=== PATIENT | female | born 1955 | race Caucasian/White ===

== ENCOUNTER → 2017-01-05 | Outpatient (CLI) | payer OTHER ==
--- NOTE | 2017-01-08 08:18 | MM ---
Reason for exam: screening (asymptomatic). Last mammogram was performed 1 year and 3 months ago. History: Patient is postmenopausal. Cancelled Right Mammotome of the right breast, October 09, 2007. Took hormonal contraceptives for 3 years. Physical Findings: A clinical breast exam by your physician is recommended on an annual basis and results should be correlated with mammographic findings. MG 3D Screening Mammo W/Cad Bilateral CC and MLO view(s) were taken. Prior study comparison: October 08, 2015, bilateral MG 3d screening mammo w/cad. August 13, 2014, right breast MG work up mamm w CAD RT. There are scattered fibroglandular densities. Focal asymmetry upper outer right breast is stable dating back to 2011. No significant changes when compared with prior studies. ASSESSMENT: Benign, BI-RAD 2 RECOMMENDATION: Routine screening mammogram of both breasts in 1 year.
== END | disposition home or self-care (01) ==
LOC: RADMAMWWP 07:32
PROVIDERS: ATTEND Family Medicine
DX: Z12.31 Encounter for screening mammogram for malignant neoplasm of breast (principal)
CPT/HCPCS: 77063; G0202

== ENCOUNTER → 2017-05-02 | Outpatient (CLI) | payer OTHER ==
--- NOTE | 2017-05-03 07:18 | USB ---
Reason for exam: clinical finding. History: Patient is postmenopausal. Cancelled Right Mammotome of the right breast, October 09, 2007. Took hormonal contraceptives for 3 years. Physical Findings: Nurse did not find any significant physical abnormalities on exam. US Breast BILAT Right breast ultrasound includes all four quadrants, the retroareolar region and axilla. Finding demonstrates no cystic or solid lesion seen. Left breast ultrasound includes all four quadrants, the retroareolar region and axilla. Finding demonstrates no cystic or solid lesion seen. No suspicious findings. These results were verbally communicated with the patient and result sheet given to the patient on 05/02/17. ASSESSMENT: Negative, BI-RAD 1 RECOMMENDATION: Return to routine screening mammogram schedule for both breasts. Back on schedule. Manage patient on a clinical basis.
== END | disposition home or self-care (01) ==
LOC: RADUSWWP 14:05
PROVIDERS: ATTEND Obstetrics & Gynecology
DX: N64.4 Mastodynia (principal)

== ENCOUNTER → 2018-05-07 | Outpatient (CLI) | payer BC ==
--- NOTE | 2018-05-07 15:07 | BD ---
EXAMINATION TYPE: Axial Bone Density DATE OF EXAM: 05/07/2018 COMPARISON: NONE CLINICAL HISTORY: Postmenopausal female. Osteoporosis screening. Height: 5 FT 1 1/4 IN Weight: 165 FRAX RISK QUESTIONS: History of Fracture in Adulthood: YES Secondary Osteoporosis: RISK FACTORS HISTORY OF: History of Wrist Fracture: LT WRIST X 2 When: 2018 Active: YES Postmenopausal woman: PART HYST 43 MEDICATIONS: Thyroid Medications: YES Which medication: LEVOTHYROXINE How Long: APPROX 20 YEARS Additional Medications: LEVOTHYROXINE, HCTZ , ATORVASTATIN, OXYBUTIN Additional History: EXAM MEASUREMENTS: Bone mineral densitometry was performed using the [employer] System. Bone mineral density as measured about the Lumbar spine is: ----- L1-L4(G/cm2): 1.209 T Score Values are as follows: ----- L2: 0.0 ----- L3: 0.8 ----- L4: 0.5 ----- L1-L4: 0.2 Bone mineral density has: DECREASED -8.4 % since study of: 2015 Bone mineral density about the R hip (g/cm2): 1.035 Bone mineral density about the L hip (g/cm2): 1.031 T Score values are as follows: -----R Neck: 0.0 -----L Neck: -0.1 -----R Total: 0.4 -----L Total: 0.4 Bone mineral density has: DECREASED -3.1 % since study of: 2015 IMPRESSION: Normal (Values between +1 and -1 indicate normal bone mass). Consider repeating this study in 5 year s or sooner if there is some new clinical indication. NOTE: T-SCORE=SD OF THE YOUNG ADULT MEAN.
== END | disposition home or self-care (01) ==
LOC: RADBDWWP 11:59
PROVIDERS: ATTEND Obstetrics & Gynecology
DX: Z13.820 Encounter for screening for osteoporosis (principal); Z78.0 Asymptomatic menopausal state
CPT/HCPCS: 77080

== ENCOUNTER → 2018-05-07 | Outpatient (CLI) | payer BC ==
--- NOTE | 2018-05-08 12:40 | MM ---
Reason for exam: screening (asymptomatic). Last mammogram was performed 1 year and 4 months ago. History: Patient is postmenopausal. Cancelled Right Mammotome of the right breast, October 09, 2007. Took hormonal contraceptives for 3 years. Physical Findings: A clinical breast exam by your physician is recommended on an annual basis and results should be correlated with mammographic findings. MG 3D Screening Mammo W/Cad Bilateral CC and MLO view(s) were taken. Prior study comparison: January 05, 2017, bilateral MG 3d screening mammo w/cad. October 08, 2015, bilateral MG 3d screening mammo w/cad. No significant changes when compared with prior studies. ASSESSMENT: Negative, BI-RAD 1 RECOMMENDATION: Routine screening mammogram of both breasts in 1 year.
== END | disposition home or self-care (01) ==
LOC: RADMAMWWP 11:56
PROVIDERS: ATTEND Family Medicine
DX: Z12.31 Encounter for screening mammogram for malignant neoplasm of breast (principal)
CPT/HCPCS: 77063; 77067

== ENCOUNTER → 2019-06-24 | Outpatient (CLI) | payer BC ==
--- NOTE | 2019-06-26 09:59 | MM ---
Reason for exam: screening (asymptomatic). Last mammogram was performed 1 year and 2 months ago. History: Patient is postmenopausal. Cancelled Right Mammotome of the right breast, October 09, 2007. Took hormonal contraceptives for 3 years. Physical Findings: A clinical breast exam by your physician is recommended on an annual basis and results should be correlated with mammographic findings. MG 3D Screening Mammo W/Cad Bilateral CC and MLO view(s) were taken. Prior study comparison: May 07, 2018, bilateral MG 3d screening mammo w/cad. January 05, 2017, bilateral MG 3d screening mammo w/cad. There are scattered fibroglandular densities. There is no discrete abnormality. No significant changes when compared with prior studies. ASSESSMENT: Negative, BI-RAD 1 RECOMMENDATION: Routine screening mammogram of both breasts in 1 year.
== END | disposition home or self-care (01) ==
LOC: RADMAMWWP 07:53
PROVIDERS: ATTEND Family Medicine
DX: Z12.31 Encounter for screening mammogram for malignant neoplasm of breast (principal)
CPT/HCPCS: 77063; 77067

== ENCOUNTER → 2020-07-14 | Outpatient (CLI) | payer BC ==
--- NOTE | 2020-07-19 11:13 | MM ---
Reason for exam: screening (asymptomatic). Last mammogram was performed 1 year and 1 month ago. History: Patient is postmenopausal. Cancelled Right Mammotome of the right breast, October 09, 2007. Took hormonal contraceptives for 3 years. Physical Findings: A clinical breast exam by your physician is recommended on an annual basis and results should be correlated with mammographic findings. MG 3D Screening Mammo W/Cad Bilateral CC and MLO view(s) were taken. Prior study comparison: June 24, 2019, bilateral MG 3d screening mammo w/cad. May 07, 2018, bilateral MG 3d screening mammo w/cad. There are scattered fibroglandular densities. Stable focal asymmetry right upper outer quadrant. No significant changes when compared with prior studies. ASSESSMENT: Negative, BI-RAD 1 RECOMMENDATION: Routine screening mammogram of both breasts in 1 year.
== END | disposition home or self-care (01) ==
LOC: RADMAMWWP 07:09
PROVIDERS: ATTEND Family Medicine
DX: Z12.31 Encounter for screening mammogram for malignant neoplasm of breast (principal)
CPT/HCPCS: 77063; 77067

== ENCOUNTER → 2020-07-14 | Outpatient (CLI) | payer BC ==
--- NOTE | 2020-07-14 09:12 | BD ---
EXAMINATION TYPE: Axial Bone Density DATE OF EXAM: 07/14/2020 COMPARISON: 05.07.2018 CLINICAL HISTORY: 65 YR OLD FEMALE.....ICD-10 CODE: Z78.0 POST MENOPAUSAL Height: 61.2 Weight: 163 FRAX RISK QUESTIONS: History of Fracture in Adulthood: YES Secondary Osteoporosis: YES 3. Menopause before 45: HYST AT AGE 43 RISK FACTORS HISTORY OF: History of Wrist Fracture: LT WRIST X2 IN 2018 Postmenopausal woman: YES AT AGE 43 Take estrogen and/or progesterone medications: VAG. CREAM, ESTROGEN, FOR ABOUT 20 YRS Lost more than 2 inches in height since high school: YES Hyperparathyroidism: NO Adrenal Insufficiency: NO MEDICATIONS: Thyroid Medications: YES, SYNTHROID FOR ABOUT 22 YRS Additional Medications: HCTZ, STATIN FOR CHOLESTEROL, OXYBUTYNIN, VIT D WEEKLY, SINGULAIR AND FLONASE Additional History: CHOLESTEROL, HYPERTENSION, INCONTINENCE, SINUSITIS EXAM MEASUREMENTS: Bone mineral densitometry was performed using the [employer] System. Bone mineral density as measured about the Lumbar spine is: ----- L1-L4(G/cm2): 1.360 T Score Values are as follows: ----- L1: 0.0 ----- L2: 1.2 ----- L3: 2.0 ----- L4: 2.1 ----- L1-L4: 1.5 Bone mineral density has: Increased 13.7% since study of: 05.07.2018 Bone mineral density about the R hip (g/cm2): 1.016 Bone mineral density about the L hip (g/cm2): 1.012 T Score values are as follows: -----R Neck: 0.0 -----L Neck: -0.1 -----R Total: 0.1 -----L Total: 0.0 Bone mineral density has: Decreased -4.1% since study of: 05.07.2018 FRAX%s: THERE IS A 6.1% CHANCE FOR A MAJOR OSTEOPOROTIC FX AMD A 0.2% FOR HIP.....PROBABILITY FOR F X IN 10 YRS TIME IMPRESSION: Normal (Values between +1 and -1 indicate normal bone mass). Consider repeating this study in 5 year s or sooner if there is some new clinical indication. NOTE: T-SCORE=SD OF THE YOUNG ADULT MEAN.
== END | disposition home or self-care (01) ==
LOC: RADBDWWP 07:13
PROVIDERS: ATTEND Family Medicine
DX: Z78.0 Asymptomatic menopausal state (principal)
CPT/HCPCS: 77080

== ENCOUNTER → 2021-08-12 | Outpatient (CLI) | payer MEDICARE ==
--- NOTE | 2021-08-12 13:25 | MM ---
Reason for exam: screening (asymptomatic). Last mammogram was performed 1 year and 1 month ago. History: Patient is postmenopausal. Family history of breast cancer in sister. Cancelled Right Mammotome of the right breast, October 09, 2007. Took hormonal contraceptives for 3 years. Physical Findings: A clinical breast exam by your physician is recommended on an annual basis and results should be correlated with mammographic findings. MG 3D Screening Mammo W/Cad Bilateral CC and MLO view(s) were taken. Prior study comparison: July 14, 2020, bilateral MG 3d screening mammo w/cad. June 24, 2019, bilateral MG 3d screening mammo w/cad. The breast tissue is heterogeneously dense. This may lower the sensitivity of mammography. No significant changes when compared with prior studies. ASSESSMENT: Benign, BI-RAD 2 RECOMMENDATION: Routine screening mammogram of both breasts in 1 year.
== END | disposition home or self-care (01) ==
LOC: RADMAMWWP 06:59
PROVIDERS: ATTEND Family Medicine
DX: Z12.31 Encounter for screening mammogram for malignant neoplasm of breast (principal); Z78.0 Asymptomatic menopausal state; Z80.3 Family history of malignant neoplasm of breast
CPT/HCPCS: 77063; 77067

== ENCOUNTER → 2021-10-31 | Outpatient (CLI) | payer MEDICARE | END | disposition home or self-care (01) | LOC: LABPAT 10:32 | PROVIDERS: ATTEND Obstetrics & Gynecology | DX: Z53.9 Procedure and treatment not carried out, unspecified reason (principal) ==

== ENCOUNTER 2021-11-09 06:02 | Day surgery (SDC) | payer MEDICARE ==
[2021-11-01 09:44] LABS: African American GFR (CKD) 110.9 (60.0-200.0); Anion Gap 11.8 mmol/L (10.00-18.00); BUN/Creat Ratio 18.17 Ratio (12.00-20.00); Blood Urea Nitrogen 10.9 mg/dL (9.0-27.0); Calcium 9.5 mg/dL (8.7-10.3); Carbon Dioxide 24.2 mmol/L (20.0-27.5); Non-African American GFR(CKD) 95.7 (60.0-200.0)
[2021-11-01 09:45] LABS: Basophils # (A) 0.04 X 10*3/uL (0.00-0.10); Basophils % (A) 0.4 %; Eosinophils # (A) 0.14 X 10*3/uL (0.04-0.35); Eosinophils % (A) 1.5 %; HCT 39.9 % (37.2-46.3); HGB 13.3 g/dL (12.0-15.0); Immature Grans, Automated 0.3 %; Lymphocytes # (A) 1.88 X 10*3/uL (0.90-5.00); Lymphocytes % (A) 20.6 %; MCH 29.2 pg (27.0-32.0); MCHC 33.3 g/dL (32.0-37.0); MCV 87.7 fL (80.0-97.0); Mean Platelet Volume 9.6 fL (9.5-12.2); Monocytes # (A) 0.55 X 10*3/uL (0.20-1.00); NRBC Per 100 WBC 0 /100 WBCS (0.0-0.0); Neutrophils % (A) 71.2 %; Platelet Count 314 X 10*3/uL (140-440); RBC 4.55 X 10*6/uL (4.10-5.20); RDW 14.1 % (11.5-14.5); WBC 9.14 X 10*3/uL (4.50-10.00)
[2021-11-07 13:36] VITALS: BMI 28.3
--- NOTE | 2021-11-08 19:19 | P.GSHP ---
History of Present Illness H&P Date: 11/08/21 66 yo female with stress incontinence and a grade 3 cystocele who comes for a bladder neck suspension by me and an anterior repair by Dr rutherford. The risks and complications have been discussed as have the alternatives - Constitutional Constitutional: Denies chills, Denies fever - EENT Eyes: denies blurred vision, denies pain Ears, nose, mouth and throat: Denies headache, Denies sore throat - Cardiovascular Cardiovascular: Denies chest pain, Denies shortness of breath - Respiratory Respiratory: Denies cough, Denies 7 - Gastrointestinal Gastrointestinal: Denies abdominal pain, Denies diarrhea, Denies nausea, Denies vomiting - Genitourinary (Female) Genitourinary: Denies dysuria, Denies hematuria - Genitourinary (Male) Genitourinary: Denies dysuria, Denies hematuria - Musculoskeletal Musculoskeletal: Denies myalgias - Integumentary Integumentary: Denies pruritus, Denies rash - Neurological Neurological: Denies numbness, Denies weakness - Psychiatric Psychiatric: Denies anxiety, Denies depression - Endocrine Endocrine: Denies fatigue, Denies weight change Past Medical History Past Medical History: Hyperlipidemia, Hypertension, Thyroid Disorder Additional Past Medical History / Comment(s): stress incontinence, cystocele History of Any Multi-Drug Resistant Organisms: None Reported Past Surgical History: Hysterectomy, Orthopedic Surgery, Tonsillectomy Additional Past Surgical History / Comment(s): surgery for a tubal , laproscopy surgeries, rt foot ganglion cyst, hemorrhoidectomy Past Anesthesia/Blood Transfusion Reactions: No Reported Reaction Smoking Status: Never smoker - Past Family History Father Family Medical History: Cancer Medications and Allergies Home Medications Medication Instructions Recorded Confirmed Type Aspirin [Adult Low Dose Aspirin EC] 81 mg PO DAILY 05/23/16 11/07/21 History Atorvastatin Calcium [Lipitor] 10 mg PO HS 05/23/16 11/07/21 History Levothyroxine Sodium [Synthroid] 75 mcg PO DAILY 05/23/16 11/07/21 History Multivitamins, Thera [Multivitamin 1 tab PO DAILY 05/23/16 11/07/21 History (formulary)] Ray-3 Fatty Acids/Fish Oil [Fish 1 each PO DAILY 05/23/16 11/07/21 History Oil 1,000 mg Softgel] Oxybutynin Chloride 5 mg PO BID 05/23/16 11/07/21 History Losartan/Hydrochlorothiazide 1 tab PO DAILY 11/07/21 11/07/21 History [Losartan-Hctz 50-12.5 mg Tab] Methylcellulose (with Sugar) 2 gm PO DAILY 11/07/21 11/07/21 History [Citrucel Powder] Montelukast Sodium [Singulair] 10 mg PO HS 11/07/21 11/07/21 History Allergies Allergy/AdvReac Type Severity Reaction Status Date / Time doxycycline AdvReac lightheaded, Verified 11/07/21 13:12 dizzy lisinopril AdvReac Cough Verified 11/07/21 13:12 Surgical - Exam - General well developed, well nourished, no distress - Eyes normal ocular movement, no icteric - ENT no hearing loss, no congestion - Neck no masses, trachea midline - Respiratory normal respiratory effort, clear to auscultation - Abdomen Abdomen: soft, non tender, no guarding, no rigid, no rebound - Genitourinary hypermobileurethra and grade 3 cystocele normal external genitalia - Integumentary no rash, no abnormal pigmentation - Neurologic no disoriented, no combative - Psychiatric oriented to time, oriented to person, oriented to place, speech is normal, memory intact Results - Labs 10/31/21 10:53 10/31/21 10:53 Assessment and Plan Assessment: Impression: Stress urinary incontinence, grade 3 cystocele Plan: transobturator tape, anterior repair
--- NOTE | 2021-11-08 20:31 | P.HPOB ---
History of Present Illness H&P Date: 11/08/21 Chief Complaint: Cystocele, urinary incontinence This is a 66 y.o. female, 2, para 1, who presents for anterior vaginal colporrhaphy due to 3rd degree cystocele and urinary stress incontinence. Dr. Lovelace will perform sling. She complains of vaginal bulge, pressure, and stress incontinence. OB Hx: . History of 1 vaginal delivery and 1 ectopic . 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 History of LAVH, 1996 due to fibroids. Social Hx: Single, stable boyfriend 10 yrs. Retired. Review of Systems Constitutional: Reports weight loss, Denies chills, Denies fever Eyes: denies blurred vision, denies pain Ears, nose, mouth and throat: Denies headache, Denies sore throat Cardiovascular: Denies chest pain, Denies shortness of breath Respiratory: Denies cough Gastrointestinal: Denies abdominal pain, Denies diarrhea, Denies nausea, Denies vomiting Genitourinary: Reports prolapse symptoms, Reports stress incontinence Musculoskeletal: Denies myalgias Integumentary: Denies pruritus, Denies rash Neurological: Denies numbness, Denies weakness Psychiatric: Denies anxiety, Denies depression Endocrine: Denies fatigue Past Medical History Past Medical History: Hyperlipidemia, Hypertension, Thyroid Disorder Additional Past Medical History / Comment(s): stress incontinence, cystocele History of Any Multi-Drug Resistant Organisms: None Reported Past Surgical History: Hysterectomy, Orthopedic Surgery, Tonsillectomy Additional Past Surgical History / Comment(s): surgery for a tubal , laproscopy surgeries, rt foot ganglion cyst, hemorrhoidectomy, D&C Past Anesthesia/Blood Transfusion Reactions: No Reported Reaction Smoking Status: Never smoker Past Alcohol Use History: Occasional Past Drug Use History: None Reported - Past Family History Father Family Medical History: Cancer Medications and Allergies Home Medications Medication Instructions Recorded Confirmed Type RX: Aspirin [Adult Low Dose 81 mg PO DAILY 05/23/16 11/07/21 History Aspirin EC] RX: Atorvastatin Calcium [Lipitor] 10 mg PO HS 05/23/16 11/09/21 History RX: Levothyroxine Sodium 75 mcg PO DAILY 05/23/16 11/09/21 History [Synthroid] RX: Multivitamins, Thera 1 tab PO DAILY 05/23/16 11/07/21 History [Multivitamin (formulary)] RX: [place]-3 Fatty Acids/Fish Oil 1 each PO DAILY 05/23/16 11/07/21 History [Fish Oil 1,000 mg Softgel] RX: Oxybutynin Chloride 5 mg PO BID 05/23/16 11/09/21 History Losartan/Hydrochlorothiazide 1 tab PO DAILY 11/07/21 11/09/21 History [Losartan-Hctz 50-12.5 mg Tab] Methylcellulose (with Sugar) 2 gm PO DAILY 11/07/21 11/09/21 History [Citrucel Powder] Montelukast Sodium [Singulair] 10 mg PO HS 11/07/21 11/09/21 History Allergies Allergy/AdvReac Type Severity Reaction Status Date / Time doxycycline AdvReac lightheaded, Verified 11/07/21 13:12 dizzy lisinopril AdvReac Cough Verified 11/07/21 13:12 Exam Osteopathic Statement: *. No significant issues noted on an osteopathic structural exam other than those noted in the History and Physical/Consult. HEENT: within normal limits Heart: regular rate and rhythm Lungs: clear to auscultation bilaterally Abdomen: soft, non-tender Pelvic: Grade 2-3 cystocele, no adnexal masses or tenderness Extremities: neg. Jose's Results Result Diagrams: 10/31/21 10:53 10/31/21 10:53 Assessment and Plan (1) Cystocele Current Visit: No Status: Acute Code(s): [id number] - SNOMED Code(s): 141406702 (2) Urinary, incontinence, stress female Current Visit: No Status: Acute Code(s): N39.3 - STRESS INCONTINENCE (FEMALE) (MALE) SNOMED Code(s): 66699332 Plan: Proceed with anterior vaginal colporrhaphy with Dr. Lovelace to perform sling for incontinence. I have discussed the risks, benefits, and alternative therapies for the above- mentioned procedure and for both sedation/anesthesia as well as necessary blood products administration, if indicated, as they pertain to this patient. The patient has indicated her understanding and acceptance of the risks and procedures discussed.
[~2021-11-09 06:02] MED LIST: LACTATED RINGERS 1,000 ML IV SCH; LIDOCAINE 1% (10MG/ML) FOR IV START INTRADERMA PRN
[2021-11-09] MEDS ORDERED: HYDROmorphone 0.5 MG/0.5 ML SYRINGE IVP PRN (07:00)
[2021-11-09] MEDS ORDERED: ONDANSETRON 4 MG/2 ML VIAL IVP PRN (07:00)
[2021-11-09] MEDS ORDERED: MIDAZOLAM 2 MG/2 ML VIAL IV ONE (07:17)
[2021-11-09] MEDS ORDERED: DEXAMETHASONE SOD PHOSPHATE 4 MG/ML 1 ML VIAL IV ONE (07:23)
[2021-11-09] MEDS ORDERED: LIDOCAINE 2% INJ 20 MG/ML (2 ML VIAL) ONE (07:30)
[2021-11-09] MEDS ORDERED: PROPOFOL 10 MG/ML 20 ML VIAL IV ONE (07:30)
[2021-11-09] MEDS ORDERED: MORPHINE SULFATE (PF) 0.3 MG/0.3 ML SYR ONE (07:30)
[2021-11-09] MEDS ORDERED: PHENYLEPHRINE-0.9% NACL SYG 1,000 MCG/10 ML SYRINGE ONE (07:30)
--- NOTE | 2021-11-09 08:27 | P.OP ---
Date of Procedure: 11/09/21 Preoperative Diagnosis: Cystocele Urinary stress incontinence Postoperative Diagnosis: Same Procedure(s) Performed: Anterior vaginal colporrhaphy (Dr. Lovelace performed a pubovaginal sling with cystoscopy) Anesthesia: CHANTEL Surgeon: Sanjuana Jaimes Can Operator #1: Lonnie Lovelace Estimated Blood Loss (ml): 25 Pathology: other (Vaginal mucosa) Condition: stable Disposition: floor Indications for Procedure: This is a 66 y.o. female, 2, para 1, who presents for anterior vaginal colporrhaphy due to 3rd degree cystocele and urinary stress incontinence. Dr. Lovelace will perform sling. She complains of vaginal bulge, pressure, and stress incontinence. Operative Findings: Grade 2-3 cystocele, minimal to grade 1 rectocele. Description of Procedure: The patient is taken to the operating room where she is placed in the dorsal lithotomy position. She is prepped and draped in the normal sterile fashion. A weighted speculum was placed in the patient's vagina. A right angle retractor was used to visualize the vaginal cuff. The edges of the vaginal cuff were grasped with 2 Allis clamps. Injection of 1 amp of epinephrine to 150 mL of normal saline was injected underneath the vaginal mucosa upwards towards the urethra. A small transverse incision was made between the 2 Allis clamps and then a Metzenbaum scissors was used to dissect underneath the vaginal mucosa upwards towards the urethra. The vaginal mucosa was dissected away from the bladder with Metzenbaum scissors and blunt dissection. Once the cystocele was freed, the cystocele was reduced with 0 Vicryl suture in interrupted figure-of- eight stitches. Dr. Lovelace performed his sling procedure and this will be dictated separately. He also placed a Starks catheter after performing cystoscopy. Next 1 more stitch of 0 Vicryl interrupted was placed to reduce the cystocele. The edges of the vaginal mucosa were trimmed with Metzenbaum scissors. Next the vaginal mucosa was sutured with 0 Vicryl suture in a running locked fashion all the way to the cuff. Several interrupted stitches were placed. The vagina is packed with one-inch iodoform gauze with bacitracin ointment. All sponge and needle counts correct. The patient is taken to recovery room in stable condition.
--- NOTE | 2021-11-09 08:28 | P.OP ---
Date of Procedure: 11/09/21 Preoperative Diagnosis: Stress urinary incontinence, grade 3 cystocele Postoperative Diagnosis: Same Procedure(s) Performed: Trans-obturator tape with obtryx 2 graft with cystoscopy Anesthesia: CHANTEL Surgeon: Lonnie Lovelace Pathology: none sent Condition: stable Disposition: PACU Indications for Procedure: The patient has documented stress incontinence and a grade [address] Jaimes will perform an anterior repair I will do a trans-obturator tape. risks and complications including the mesh controversy have been discussed. Description of Procedure: The patient has previously been brought to the operating suite and given a general endotracheal anesthesia with a sterile prep and drape. Dr. Jaimes performs an anterior repair. The posterior urethra was exposed and I dissect lateral the urethra bilaterally. I make 2 incisions in the inguinal crease at the level clitoris. I passed the graft introducers through the inguinal incisions around the issue pubic ramus into the vagina bilaterally. I removed the Starks and passed the 22-Angolan cystoscope into the bladder to make sure there is no evidence of perforation with the introducers and there is none. I then attached the grafted introducers and pull the graft back through the obturator foramen. The grafts lay nicely in the mid urethra. The redundant sheathing and redundant graft was removed. Dr. Jaimes then comes back and finishes the anterior repair and closes the vaginal mucosa. I close inguinal incisions with 4-0 Vicryl. A vaginal packing is placed. The blood loss is minimal. Patient tolerated procedure well.
[2021-11-09] MEDS ORDERED: SIMETHICONE 80 MG CHEWABLE PO PRN (09:30)
[2021-11-09] MEDS ORDERED: diphenhydrAMINE 50 MG/ML 1 ML VIAL IVP PRN (09:30)
[2021-11-09] MEDS ORDERED: NON FORMULARY DRUG (Omega-3 Fatty Acids/Fish Oil [Fish Oil 1,000 Mg Softgel] 1 EACH Capsul PO SCH (09:30)
[2021-11-09] MEDS ORDERED: ZOLPIDEM 5 MG TAB PO PRN (09:30)
[2021-11-09] MEDS ORDERED: [UNRECOGNIZED DRUG - OTHER] PO SCH (09:30)
[2021-11-09] MEDS ORDERED: METHYLCELLULOSE PO SCH (09:30)
[2021-11-09] MEDS: LEVOTHYROXINE 75 MCG TAB PO SCH (10:06)
[2021-11-09] MEDS: LOSARTAN-HCTZ 50-12.5 MG 1 EACH TAB PO SCH (10:07)
[2021-11-09] MEDS: MULTIVITAMINS, THERA 1 EACH TAB PO SCH (10:45)
[2021-11-09] MEDS: SENNOSIDES-DOCUSATE SODIUM 1 EACH TAB PO SCH ×2 (10:49→20:51)
[2021-11-09] MEDS: KETOROLAC 15 MG/ML 1 ML VIAL IVP PRN (20:38)
[2021-11-09] MEDS ORDERED: MONTELUKAST 10 MG TAB PO SCH (21:00)
[2021-11-09] MEDS ORDERED: ATORVASTATIN 10 MG TAB PO SCH (21:00)
[2021-11-10 01:04] VITALS: RESP 16; TEMP 97.8
[2021-11-10] MEDS: KETOROLAC 15 MG/ML 1 ML VIAL IVP PRN (03:18)
[2021-11-10] MEDS: LEVOTHYROXINE 75 MCG TAB PO SCH (05:39)
[2021-11-10 07:14] LABS: Basophils % (A) 0 %; Eosinophils # (A) 0.2 k/uL (0-0.7); Eosinophils % (A) 2 %; HCT 36.3 % (34.0-46.0); HGB 11.6 gm/dL (11.4-16.0); Lymphocytes # (A) 2.4 k/uL (1.0-4.8); Lymphocytes % (A) 24 %; MCH 29.5 pg (25.0-35.0); MCHC 32.1 g/dL (31.0-37.0); MCV 91.8 fL (80.0-100.0); Mean Platelet Volume 7.3; Monocytes # (A) 0.6 k/uL (0-1.0); Monocytes % (A) 6 %; Neutrophils # (A) 6.5 k/uL (1.3-7.7); Neutrophils % (A) 66 %; Platelet Count 288 k/uL (150-450); RBC 3.95 m/uL (3.80-5.40); RDW 13.4 % (11.5-15.5); WBC 9.8 k/uL (3.8-10.6)
[2021-11-10] MEDS ORDERED: ACETAMINOPHEN TAB 325 MG TAB PO PRN (07:37)
[2021-11-10 08:10] VITALS: BP 131/80; PULSE 58
--- NOTE | 2021-11-10 08:42 | P.PN ---
Progress Note - Text Progress Note Date: 11/10/21 Patient doing well. Ambulating w/o paresthesia or weakness. Some pruritis. Denies headache. Pain treated. Back - spinal site c/d A/P POD #1 s/p spinal duramorph - doing well
[2021-11-10] MEDS: IBUPROFEN 600 MG TAB PO PRN ×2 (08:55→15:04)
[2021-11-10] MEDS: MULTIVITAMINS, THERA 1 EACH TAB PO SCH (08:55)
[2021-11-10] MEDS: SENNOSIDES-DOCUSATE SODIUM 1 EACH TAB PO SCH (08:55)
[2021-11-10] MEDS: LOSARTAN-HCTZ 50-12.5 MG 1 EACH TAB PO SCH (08:55)
--- NOTE | 2021-11-10 08:59 | P.DS ---
Providers Date of admission: 11/09/2021 Expected date of discharge: 11/10/21 Attending physician: Sanjuana Jaimes Primary care physician: Thuy Joseph - Discharge Diagnosis(es) (1) Cystocele Current Visit: No Status: Acute (2) Urinary, incontinence, stress female Current Visit: No Status: Acute Hospital Course: This is a 66-year-old female who underwent a anterior vaginal colporrhaphy along with trans obturator sling performed by Dr. Lovelace on 11/09/2021. Postoperatively she has done well. She is ambulating. She has not urinated yet. Her pain is fairly well controlled with Toradol and Tylenol. She is tolerating regular diet. Bleeding has been minimal. Radha-pad shows scant ser osanguineous discharge. Groin incision sites are dry and intact. Impression is status post anterior vaginal colporrhaphy and vaginal sling performed by Dr. Lovelace post operative day #1. Plan is to discharge home later today as long as she has low postvoid residuals. May take ibuprofen or Tylenol as needed for pain. She will need to follow-up with me in the office in 1-2 weeks for a postoperative check. She is advised to call the office if she has any further questions or concerns prior to her next appointment time. No heavy lifting. May shower, but no tub baths. Procedures: Anterior vaginal colporrhaphy 11/09/2021 Trans obturator sling-Dr. Lovelace Patient Condition at Discharge: Stable Plan - Discharge Summary Discharge Rx Participant: Yes New Discharge Prescriptions: New Ibuprofen [Motrin] 600 mg PO Q6HR PRN #60 tab PRN Reason: Mild Discomfort No Action Atorvastatin Calcium [Lipitor] 10 mg PO HS Oxybutynin Chloride 5 mg PO BID Levothyroxine Sodium [Synthroid] 75 mcg PO DAILY Aspirin [Adult Low Dose Aspirin EC] 81 mg PO DAILY Multivitamins, Thera [Multivitamin (formulary)] 1 tab PO DAILY [place]-3 Fatty Acids/Fish Oil [Fish Oil 1,000 mg Softgel] 1 each PO DAILY Losartan/Hydrochlorothiazide [Losartan-Hctz 50-12.5 mg Tab] 1 tab PO DAILY Montelukast Sodium [Singulair] 10 mg PO HS Methylcellulose (with Sugar) [Citrucel Powder] 2 gm PO DAILY Discharge Medication List Aspirin [Adult Low Dose Aspirin EC] 81 mg PO DAILY 05/23/16 [History] Atorvastatin Calcium [Lipitor] 10 mg PO HS 05/23/16 [History] Levothyroxine Sodium [Synthroid] 75 mcg PO DAILY 05/23/16 [History] Multivitamins, Thera [Multivitamin (formulary)] 1 tab PO DAILY 05/23/16 [History] [place]-3 Fatty Acids/Fish Oil [Fish Oil 1,000 mg Softgel] 1 each PO DAILY 05/23/16 [History] Oxybutynin Chloride 5 mg PO BID 05/23/16 [History] Losartan/Hydrochlorothiazide [Losartan-Hctz 50-12.5 mg Tab] 1 tab PO DAILY 11/07/21 [History] Methylcellulose (with Sugar) [Citrucel Powder] 2 gm PO DAILY 11/07/21 [History] Montelukast Sodium [Singulair] 10 mg PO HS 11/07/21 [History] Ibuprofen [Motrin] 600 mg PO Q6HR PRN #60 tab 11/10/21 [Rx] Follow up Appointment(s)/Referral(s): Sanjuana Jaimes DO [Doctor of Osteopathic Medicine] - 1 Week Activity/Diet/Wound Care/Special Instructions: Activity as tolerated. Diet as tolerated. May shower, but no tub baths. No heavy lifting or straining. Discharge Disposition: HOME SELF-CARE
[2021-11-10] MEDS ORDERED: ASPIRIN 81 MG PO SCH (09:00)
== END 2021-11-10 15:59 | disposition home or self-care (01) ==
LOC: OR 06:02 → 4FBP 08:24 → OR 11-10 15:59
PROVIDERS: ATTEND Obstetrics & Gynecology
DX: N39.3 Stress incontinence (female) (male) (principal); N81.10 Cystocele, unspecified; E78.5 Hyperlipidemia, unspecified; I10 Essential (primary) hypertension; E07.9 Disorder of thyroid, unspecified; Z90.710 Acquired absence of both cervix and uterus; Z98.890 Other specified postprocedural states; Z79.82 Long term (current) use of aspirin; Z79.890 Hormone replacement therapy; Z79.899 Other long term (current) drug therapy; Z88.1 Allergy status to other antibiotic agents; Z88.8 Allergy status to other drugs, medicaments and biological substances; Z86.19 Personal history of other infectious and parasitic diseases
CPT/HCPCS: 86900; 86901; 80048; 85025 ×2; 86850; 88302; 93005; 36415; 57288; 57260; C1771; J2250; J0171; J1100; J2405; J2274; J1885 ×2; J2370; J2704; J2001

== ENCOUNTER → 2022-04-20 | Outpatient (CLI) | payer MEDICARE ==
--- NOTE | 2022-04-20 15:21 | US ---
EXAMINATION TYPE: US kidneys/renal and bladder DATE OF EXAM: 04/20/2022 COMPARISON: NONE CLINICAL HISTORY: N39.0 UTI. EXAM MEASUREMENTS: Right Kidney: 10.0 x 4.6 x 4.6 cm Left Kidney: 10.1 x 5.1 x 5.1 cm Right Kidney: wnl . No shadowing calculi, hydronephrosis, or solid contour deforming mass. Left Kidney: Echogenic partially exophytic mass mid pole 0.6 x 0.7 x 0.8 cm with internal color flow . No hydronephrosis or renal calculi. Bladder: wnl Bilateral Jets seen: Right jet visualized, left jet not visualized. IMPRESSION: 1. No evidence for hydronephrosis or shadowing renal calculi. 2. Left mid pole partially exophytic echogenic 0.8 cm mass. This may represent an angiomyolipoma vers us renal cell carcinoma. Further evaluation with CT or MR abdomen renal mass protocol is recommended.
== END | disposition home or self-care (01) ==
LOC: RADUSWWP 14:29
PROVIDERS: ATTEND Urology
DX: N39.0 Urinary tract infection, site not specified (principal)
CPT/HCPCS: 76770

== ENCOUNTER → 2022-05-16 | Outpatient (CLI) | payer MEDICARE ==
[2022-05-16 10:35] LABS: African American GFR (CKD) >90 (>60 ml/min/1.73 sqM); Blood Urea Nitrogen 14 mg/dL (7-17); Non-African American GFR(CKD) >90 (>60 ml/min/1.73 sqM)
--- NOTE | 2022-05-16 12:11 | CT ---
EXAMINATION TYPE: CT abdomen wo/w con DATE OF EXAM: 05/16/2022 COMPARISON: Renal ultrasound April 20, 2022 HISTORY: Left sided renal mass. Abnormal ultrasound. CT DLP: 923.1 mGycm Automated exposure control for dose reduction was used. TECHNIQUE: Helical acquisition of images was performed from the lung bases through the top of iliac crest to include entire abdomen. CONTRAST: Performed with Oral Contrast and without and with IV Contrast, patient injected with 100ml mL of Isov ue 300. FINDINGS: LUNG BASES: No significant abnormality is appreciated. LIVER/GB: No significant abnormality is appreciated. PANCREAS: No significant abnormality is seen. SPLEEN: No significant abnormality is seen. ADRENALS: No significant abnormality is seen. KIDNEYS: Noncontrast images show no renal calculi bilaterally. Postcontrast images show symmetric cor ticomedullary uptake and excretion without hydronephrosis seen bilaterally. Corresponding to ultrasou nd abnormality there is subcentimeter area partially exophytic in the lateral aspect upper to midpole left kidney that is slightly hypodense relative to remainder renal cortex on noncontrast images axia l image 22 postcontrast images show lower density than adjacent renal cortex seen best coronal image 60 remaining low density on delayed images measuring approximately 6 mm in size. Remainder of the luke ateral kidneys shows no concerning solid or cystic mass. Some mild areas of volume loss laterally upp er midpole level right kidney noted. BOWEL: Oral contrast does not reach ileal loops in the right abdomen. No suspicious small or large b owel dilatation. Some hyperdense material suspected food products seen throughout diverticula in the right, transverse, and left colon. No fat stranding to suggest acute diverticulitis. Mild to moderate wall thickening in the left and transverse colon favor product of poor distention without surroundin g fat stranding in the outpatient setting. LYMPH NODES: No significant abnormality is seen. OSSEOUS STRUCTURES: Mild disc space narrowing with vacuum disc phenomenon at L5-S1 level. Slight gra de 1 anterolisthesis L4 and L5. FREE AIR: No free air is visualized. OTHER: None. IMPRESSION: There is a 6 mm lesion corresponding to ultrasound abnormality that is too small to defin itively characterize, not CT imaging characteristics consistent with angiomyolipoma. Focal renal cell carcinoma cannot be excluded though would be among broad differential. Advise at minimum imaging fol low-up at 3-6 months time to reassess.
== END | disposition home or self-care (01) ==
LOC: RADCTMAIN 09:54
PROVIDERS: ATTEND Urology
DX: D41.02 Neoplasm of uncertain behavior of left kidney (principal)
CPT/HCPCS: 82565; 84520; 74170; 36415; Q9967

== ENCOUNTER → 2022-11-09 | Outpatient (CLI) | payer OTHER ==
--- NOTE | 2022-11-09 19:30 | BD ---
EXAMINATION TYPE: Axial Bone Density DATE OF EXAM: 11/09/2022 CLINICAL HISTORY: 67 years old Female. ICD-10 CODE: Z78.0 [place]YMPTOMATIC [place] Height: 61in Weight: 169lb FRAX RISK QUESTIONS: History of Fracture in Adulthood: yes Secondary Osteoporosis: 3. Menopause before 45: yes RISK FACTORS HISTORY OF: History of Wrist Fracture: left hand/wrist fx x3 When: 2015, 2017 Active: yes Postmenopausal woman: yes Take estrogen and/or progesterone medications: yes, none current How long: less than 1 year Lost more than 2 inches in height since high school: no MEDICATIONS: Thyroid Medications: Which medication: Levothyroxine How Lon+ years Additional Medications: cholesterol med, bp med, vitamin d Additional History: EXAM MEASUREMENTS: Bone mineral densitometry was performed using the [employer] System. Bone mineral density as measured about the Lumbar spine is: ----- L1-L4(G/cm2): 1.212 T Score Values are as follows: ----- L1: -0.6 ----- L2: 0.0 ----- L3: 0.9 ----- L4: 0.5 ----- L1-L4: 0.3 Z Score Values are as follows: ----- L1: 0.7 ----- L2: 1.2 ----- L3: 2.1 ----- L4: 1.7 ----- L1-L4: 1.5 Bone mineral density has: Decreased -10.9% since study of: 07-14-20 Bone mineral density about the R hip (g/cm2): 0.963 Bone mineral density about the L hip (g/cm2): 0.991 T Score values are as follows: -----R Neck: -0.8 -----L Neck: -0.3 -----R Total: -0.4 -----L Total: -0.1 Z Score values are as follows: -----R Neck: 0.5 -----L Neck: 1.0 -----R Total: 0.6 -----L Total: 0.9 Bone mineral density has: Decreased -3.6% since study of: 12-30-20 FRAX%s: The graph provided illustrates a 7.1% chance for a major osteoporotic fx and a 0.5% chance fo r the hips probability for fx in 10 years time. IMPRESSION: Normal (Values between +1 and -1 indicate normal bone mass). Consider repeating this study in 5 year s or sooner if there is some new clinical indication. NOTE: T-SCORE=SD OF THE YOUNG ADULT MEAN.
== END | disposition home or self-care (01) ==
LOC: RADBDWWP 09:10
PROVIDERS: ATTEND Family Medicine
DX: Z78.0 Asymptomatic menopausal state (principal)
CPT/HCPCS: 77080

== ENCOUNTER → 2023-09-03 | Outpatient (CLI) | payer OTHER ==
--- NOTE | 2023-09-03 20:13 | MM ---
Reason for Exam: Screening (asymptomatic). Last screening mammogram was performed 12 month(s) ago. Patient History: Menarche at age 13. First Full-Term at age 18. Hysterectomy at age 51. Postmenopausal. Patient used Hormonal Contraceptives for 3 years. 10/09/2007, Cancelled Right Mammotome on the right side. Sister had breast cancer. Risk Values: Francisca 5 year model risk: 2.1%. NCI Lifetime model risk: 7.4%. Prior Study Comparison: 07/14/2020 Bilateral Screening Mammogram, [facility]. 08/12/2021 Bilateral Screening Mammogram, [facility]. 08/31/2022 Bilateral MG 3D screening mammo w/cad, [facility]. Tissue Density: There are scattered fibroglandular densities. Findings: Analyzed By CAD. Unchanged bilateral upper outer quadrant focal asymmetries. There is no suspicious group of microcalcifications or new suspicious mass in either breast. Overall Assessment: Benign, BI-RAD 2 Management: Screening Mammogram of both breasts in 1 year. . Patient should continue monthly self-breast exams. A clinical breast exam by your physician is recommended on an annual basis. This exam should not preclude additional follow-up of suspicious palpable abnormalities. Note on Francisca scores and lifetime risk: 1. A Francisca score greater than 3% is considered moderate risk. If this is the case, consider specialist referral to assess eligibility for a risk reducing agent. 2. If overall lifetime risk for the development of breast cancer is 20% or higher, the patient may qualify for future screening with alternating mammogram and breast MRI. Electronically signed and approved by: Erica Vera M.D. Radiologist
== END | disposition home or self-care (01) ==
LOC: RADMAMWWP 07:37
PROVIDERS: ATTEND Obstetrics & Gynecology
DX: Z12.31 Encounter for screening mammogram for malignant neoplasm of breast (principal); Z80.3 Family history of malignant neoplasm of breast; Z78.0 Asymptomatic menopausal state
CPT/HCPCS: 77063; 77067

== ENCOUNTER → 2024-11-06 | Outpatient (CLI) | payer MEDICARE ==
--- NOTE | 2024-11-06 09:26 | MM ---
Reason for Exam: Screening (asymptomatic). Last mammogram was performed 1 year(s) and 2 month(s) ago. Patient History: Menarche at age 13. First Full-Term at age 18. Hysterectomy at age 51. Postmenopausal. Patient used Hormonal Contraceptives for 3 years. 10/09/2007, Cancelled Right Mammotome on the right side. Sister had breast cancer. Risk Values: Francisca 5 year model risk: 2.2%. NCI Lifetime model risk: 7.0%. Prior Study Comparison: 05/07/2018 Bilateral Screening Mammogram, [facility]. 06/24/2019 Bilateral Screening Mammogram, [facility]. 07/14/2020 Bilateral Screening Mammogram, [facility]. 08/12/2021 Bilateral Screening Mammogram, [facility]. 08/31/2022 Bilateral MG 3D screening mammo w/cad, [facility]. 09/03/2023 Bilateral MG 3D screening mammo w/cad, [facility]. Tissue Density: There are scattered areas of fibroglandular density. Findings: Analyzed By CAD. There is no suspicious group of microcalcifications or new suspicious mass in either breast. Overall Assessment: Negative, BI-RAD 1 Management: Screening Mammogram of both breasts in 1 year. . Patient should continue monthly self-breast exams. A clinical breast exam by your physician is recommended on an annual basis. This exam should not preclude additional follow-up of suspicious palpable abnormalities. Note on Francisca scores and lifetime risk: 1. A Francisca score greater than 3% is considered moderate risk. If this is the case, consider specialist referral to assess eligibility for a risk reducing agent. 2. If overall lifetime risk for the development of breast cancer is 20% or higher, the patient may qualify for future screening with alternating mammogram and breast MRI. [facility], , 11/06/2024 9:23 AM. Electronically signed and approved by: Bruce Lr M.D. Radiologis
== END | disposition home or self-care (01) ==
LOC: RADMAMWWP 08:41
PROVIDERS: ATTEND Family Medicine
DX: Z12.31 Encounter for screening mammogram for malignant neoplasm of breast (principal); R92.323 Mammographic fibroglandular density, bilateral breasts; Z78.0 Asymptomatic menopausal state; Z92.0 Personal history of contraception; Z80.3 Family history of malignant neoplasm of breast
CPT/HCPCS: 77063; 77067